=== PATIENT | female | born 1990 | race Caucasian/White ===

== ENCOUNTER 2018-05-23 20:36 | Emergency (ER) | payer OTHER ==
[2018-05-23] MEDS ORDERED: LIDOCAINE 1% (MDV) 10 ML INJ INFIL (23:48)
[2018-05-23] MEDS: HYDROCODONE/APAP (10/325) TAB PO (23:49)
[2018-05-23] MEDS: DIPHTH/TET/ACEL PERTUSS (ADULT) 0.5 ML VIAL IM* (23:50)
[2018-05-24] MEDS: CEFTRIAXONE 500 MG INJ IM (00:12)
[2018-05-24] MEDS: LIDOCAINE 1% (MPF) 5 ML VIAL INFIL (00:12)
== END 2018-05-24 00:36 | disposition home or self-care (01) ==
LOC: FTE 05-24 00:36
DX: L02.416 Cutaneous abscess of left lower limb (principal); L03.116 Cellulitis of left lower limb; Z23 Encounter for immunization
CPT/HCPCS: 81025; 90471; 90715; 96372; 99284-25